=== PATIENT | male | born 1960 | race Caucasian/White ===

== ENCOUNTER → 2016-10-30 | Outpatient (CLI) | payer BC ==
[~2016-10-30] MED LIST: ASPIRIN PO; B COMPLEX/FOLIC1 TAB PO; CLARITIN10 MG PO; DILAUDID PO; FISH OIL 1,0001 CAP PO; LIPITOR PO; MUCINEX DM1 TAB.SR . PO; PHENERGAN PO; REGLAN PO
[2016-10-30 08:42] LABS: BASOPHIL# 0.1 X10e3 (0-0.3); BASOPHIL% 1.2 % (0-2.5); EOSINOPHIL# 0.3 X10e3 (0-0.7); HEMOGLOBIN 14.3 gm/dL (13.0-16.0); LYMPHOCYTE# 1.7 X10e3 (1.0-3.5); LYMPHOCYTE% 19.8 % (17.0-45.0); MEAN CELL VOLUME 88.7 FL (83-96); MEAN CORPUSCULAR HEMOGLOBIN 29.5 PG (28-34); MEAN CORPUSCULAR HGB CONC 33.2 g/dL (30-36); MEAN PLATELET VOLUME 9.4 FL (6.5-11.5); MONOCYTE% 11.3 % (3.0-12.0); NEUTROPHIL# 5.6 X10e3 (1.5-7.1); NEUTROPHIL% 64.7 % (40-75); PLATELET COUNT 203 X10e3 (140-420); RED BLOOD COUNT 4.85 X10e (3.90-5.60); RED CELL DISTRIBUTION WIDTH 12.8 % (11.0-15.5); WHITE BLOOD COUNT 8.7 X10e3 (4.0-10.5)
[2016-10-30 09:13] LABS: DIFF IND NO
[2016-10-30 09:31] LABS: PROSTATE SPECIFIC AG SCR 1.7 ng/ml (0.0-4.0)
[2016-10-30 09:36] LABS: ALBUMIN SERUM 4.4 g/dL (3.5-5.0); BUN/CREATININE RATIO 14.61; CALCIUM SERUM 9.2 mg/dL (8.4-10.2); CREATININE SERUM 1.3 mg/dL (0.6-1.4); POTASSIUM 4.5 mmol/L (3.5-5.1)
== END | disposition home or self-care (01) ==
LOC: CLAB 08:16
PROVIDERS: Anesthesiology
DX: Z13.9 Encounter for screening, unspecified (principal)
CPT/HCPCS: 36415; 80053; 80061; 85025; G0103

== ENCOUNTER → 2016-11-06 | Outpatient (CLI) | payer BC ==
[2016-11-06 13:35] LABS: CULTURE INDICATED? NO; URINE APPEARANCE CLEAR; URINE BILIRUBIN NEG (NEG); URINE BLOOD NEG (NEG); URINE COLOR YELLOW; URINE GLUCOSE NEG (NEG); URINE KETONE NEG (NEG); URINE LEUKOCYTE ESTERASE NEG (NEG); URINE NITRATE NEG (NEG); URINE PROTEIN NEG (NEG); URINE SPECIFIC GRAVITY 1.006 (1.003-1.035); URINE UROBILINOGEN 0.2 MG/DL (NEG)
== END | disposition home or self-care (01) ==
LOC: CLAB 13:03
PROVIDERS: Anesthesiology
DX: R31.0 Gross hematuria (principal)
CPT/HCPCS: 81003; 88108

== ENCOUNTER → 2016-11-13 | Outpatient (CLI) | payer BC ==
--- NOTE | ~2016-11-13 | CT3 ---
[facility] A Service [facility] RADIOLOGY TEXT RESULTS PATIENT: NICNADEEM FERNANDO LOCATION: [facility] : 60 UNIT #: [id number] AGE: [address]: Arya Jimenez MD SEX: M ORDER DR: [id number] [facility]. [place], [place] [address] [id number] O MR#: [id number] Acc #: [id number] NAME: NADEEM LUCERO : 1960 SEX: M STUDY DATE/TIME: 11/13/2016 6:19 UNIT: [facility] ROOM: STUDY DESCRIPTION: CT Abd and Pelv WWo Cont Attending Physician: Arya Jimenez M.D. Referring Physician: Arya Jimenez M.D. Ordering Physician: Arya Jimenez M.D. Primary Care Physician: No Primary Care Physician MEDICAL IMAGING REPORT This report is preliminary unless electronic signature is present EXAM CT abdomen and pelvis without contrast (hematuria protocol). Date: 11/13/2016 HISTORY Gross hematuria for 4-[address] abdomen without contrast 07/25/2009. CT abdomen and pelvis with contrast 07/24/2009. TECHNIQUE Precontrast and postcontrast imaging was obtained through the abdomen and pelvis. Dynamic postcontrast imaging was obtained through the abdomen with attention to the kidneys. Sagittal and coronal reformed images were obtained. Delayed 5-minute excretory phase imaging was also performed. This CT exam was performed with one or more of the following radiation dose reduction techniques: automatic exposure control, adjustment of mA and/or kV according to patient size, and iterative reconstruction. FINDINGS Abdomen findings: On noncontrast imaging, no renal or ureteral stone, hydronephrosis or hydroureter is seen. On the postcontrast imaging, the kidneys demonstrate normal and symmetric enhancement. No suspicious cystic or solid renal mass is identified. On delayed excretory phase imaging, no suspicious filling defects are seen in the left consistent or ureters. Urinary bladder appears within normal [facility] A Service [facility] RADIOLOGY TEXT RESULTS PATIENT: KAVEH LUCEROERY MD [facility] #: [id number] : 60 UNIT #: [id number] AGE: [address]: Arya Jimenez MD SEX: M ORDER DR: imtiaz. There is very mild nodular protrusion of the prostate gland into the base of the urinary bladder. Benign calcified granuloma is present in the right lower lobe, the lung bases are otherwise clear. Coronary calcifications are noted. The liver, gallbladder, spleen, pancreas, adrenals are normal. No adenopathy. No free fluid. The second duodenal segment diverticulum measures 2.7 cm. There is sparse colonic diverticula without evidence of acute diverticulitis. Pelvis findings: Rectum is normal. No pelvic adenopathy or free fluid. No acute osseous abnormalities. IMPRESSION 1. There is nodular protrusion of the prostate gland to the urinary bladder base. 2. Otherwise, unremarkable appearance of the kidneys and ureters. Dictated by... Patricia Pride M.D. THIS IS AN ELECTRONICALLY VERIFIED REPORT Patricia Pride M.D. at 11/14/2016 6:13 AM Antonio TD: 11/13/2016 13:42 JOB #: [id number] MEDICAL IMAGING REPORT Page 1 of 1 COPY
== END | disposition home or self-care (01) ==
LOC: CCAT 05:41
DX: R31.0 Gross hematuria (principal); N40.2 Nodular prostate without lower urinary tract symptoms
CPT/HCPCS: 74178; Q9967